=== PATIENT | female | born 1935 | race Caucasian/White ===

== ENCOUNTER 2021-06-25 12:05 | Emergency (ER) | payer OTHER ==
[~2021-06-25] VITALS: Ht 154.9 cm; Wt 66.0 kg
[2021-06-25] MEDS ORDERED: ONDANSETRON HCL 4MG/2ML INJ IV STA (12:35)
[2021-06-25] MEDS ORDERED: SODIUM CHLORIDE 0.9% 1,000 ML IV ONE (12:45)
[2021-06-25 13:03] LABS: BASOPHILS % 0.5 % (0.0-2.0); EOSINOPHILS % 0.6 % (0.0-5.0); HEMATOCRIT. 44.1 % (36.0-48.0); HEMOGLOBIN. 14.7 g/dL (12.0-16.0); LYMPHOCYTES % 25.7 % (20.0-50.0); MEAN CORPUSCULAR HEMOGLOBIN 31.1 pg (28.0-32.0); MEAN CORPUSCULAR VOLUME 93.4 fL (81.0-99.0); MEAN PLATELET VOLUME 9.6 fl (7.4-10.4); MONOCYTES % 7.1 % (2.0-8.0); NEUTROPHILS % 66.1 % (40.0-76.0); PLATELET 215 x1000/uL (130-400); RED BLOOD CELL COUNT 4.73 mill/uL (4.2-5.4); RED CELL DISTRIBUTION WIDTH 13.9 % (11.6-14.6)
[2021-06-25 13:30] LABS: CHLORIDE 106 mEq/L (98-107)
[2021-06-25 18:10] VITALS: BP 164/69
== END 2021-06-25 18:23 | disposition short-term general hospital (02) ==
LOC: ER 12:05 → EDBD 12:05 → ER 18:23 → CANBEDREQ 18:55
DX: R55 Syncope and collapse (principal); F03.90 Unspecified dementia, unspecified severity, without behavioral disturbance, psychotic disturbance, mood disturbance, and anxiety
CPT/HCPCS: 36415; 70450; 71045; 80053; 83880; 84484; 85025; 93005; 96361; 96374; 99285; J2405; J7030